=== PATIENT | male | born 1945 | race Caucasian/White ===

== ENCOUNTER 2019-01-08 08:27 | Emergency (ER) | payer OTHER, SELFPAY ==
[2019-01-08 08:37] VITALS: BP 124/75; PULSE 82; RESP 18; TEMP 36.8; O2SAT 100; BMI 30.7
--- NOTE | 2019-01-08 08:41 | PC.NURSE ---
per son pt had catheter in for 4 months initially, then had it changed via urologist states it was in dept procedure. had to dilate constricted area, then start with a small size parr gradually increasing the size until a 14f was placed. the 1st time it was changed after that was uncomplicated. 2nd time was on Saturday. pt having blood on tip of penis, and increased pain, this is different then 1st time. lidocaine placed topically to pt's penis and urethra for pain, then explained will manipulate the catheter to see if symptoms resolve.
--- NOTE | 2019-01-08 09:18 | ED_ITS ---
HPI - Male Genitourinary General Chief complaint: Urogenital-Male Stated complaint: Painful Catheter / Bleeding Time Seen by Provider: 01/08/19 08:35 Source: patient and family Mode of arrival: EMS Limitations: no limitations History of Present Illness HPI Narrative: Patient is a 73-year-old male who has an indwelling Kaur catheter secondary to his immobility and concern for decubitus ulcers. He has had a Kaur catheter for some time now. He had a replaced 2 days ago at an outside facility. He stated that it was a fairly painful insertion which he has never had in the past. States that over the past 24 hr he has had more pain and bleeding. The catheter still draining. No fevers. He is on Eliquis. Related Data Home Medications Medication Instructions Recorded Confirmed ASPIRIN (Aspirin EC) 81 mg PO QDAY #0 09/24/11 Calcium Carbonate/Vitamin D 1 cap PO QDAY #0 09/24/11 (#CALCIUM) HYDROCHLOROTHIAZIDE (#HCTZ) 25 mg PO QDAY #0 09/24/11 MAGNESIUM OXIDE (Magnesium Oxide) 100 mg PO QDAY #0 09/24/11 PRAZOSIN HCL (MINIPRES) 5 mg PO HS #0 09/24/11 Propranolol HCl 40 mg PO TID #0 09/24/11 VALPROIC ACID (STAVZOR~) 250 mg PO QDAY #0 09/24/11 [POTASSIUM] QDAY #0 09/24/11 [VITAMIN D] QDAY #0 09/24/11 [ZINC] QDAY #0 09/24/11 aripiprazole [Abilify] 20 mg PO QDAY #0 09/24/11 fluoxetine 20 mg PO QDAY #0 09/24/11 glipizide 10 mg PO BID #0 09/24/11 insulin glargine [Lantus U-100 15 unit SQ HS #0 09/24/11 Insulin] levothyroxine [Synthroid] 0.125 mg PO QDAY #0 09/24/11 lisinopril 40 mg PO QDAY #0 09/24/11 metformin 1,000 mg PO BID #0 09/24/11 omeprazole magnesium [Prilosec OTC] 20 mg PO QDAY #0 09/24/11 rosuvastatin [Crestor] 20 mg PO QDAY #0 09/24/11 Allergies Allergy/AdvReac Type Severity Reaction Status Date / Time CODEINE Allergy Mild DOES NOT Uncoded 01/08/19 08:41 RECALL VICODIN Allergy Mild ANXIETY Uncoded 01/08/19 08:41 From DILANTIN Allergy Unknown Uncoded 01/08/19 08:41 Review of Systems Constitutional Denies fever(s) Genitourinary Comments: Bleeding and pain at the tip of the penis from the Kaur catheter Integumentary/Breasts Denies rash Neurologic Denies behavioral changes Psychiatric Denies behavioral changes Hematologic/Lymphatic Comments: on Eliquis [facility] Medical History Diabetes (Acute) Hypothyroid (Acute) Social History caregiver/support person: Yes Social History caregiver/support person: Yes Exam Initial Vital Signs Initial Vital Signs: Vital Signs Temperature 98.3 F 01/08/19 08:37 Pulse Rate 82 01/08/19 08:37 Respiratory Rate 18 01/08/19 08:37 Blood Pressure 124/75 01/08/19 08:37 Pulse Oximetry 100 01/08/19 08:37 Const General: cooperative, well developed, well groomed and No acute distress Orientation: alert, awake and oriented x3 Resp Effort & Inspection: normal respiratory effort Cardio Rate: regular rate Other: normal external male genitalia. Circumcised. Kaur catheter in place. Does have some dry blood around the tip of the meatus. No active bleeding. Skin Lesions: no lesions Rashes: no rashes Neuro General: alert and awake Extrem General: normal to inspection and capillary refill normal Course Orders Ordered: Discontinued Medications Lidocaine HCl (Xylocaine Jelly 2%) 1 applic TOP NOW ONE Stop: 01/08/19 09:13 Vital Signs - 8 hr 01/08/19 08:37 Temperature 98.3 F Pulse Rate 82 Respiratory Rate 18 Blood Pressure 124/75 Pulse Oximetry 100 MDM - Male Genitourinary MDM Narrative Medical decision making narrative: The Kaur catheter is draining. I do suspect that the bleeding today secondary to the traumatic insertion a couple days ago. This is complicated by the fact that he is on Eliquis. The patient does not have the Kaur secured to his leg. I discussed with the family that it is most likely irritation on the inside of the urethra secondary to the traumatic insertion. I do recommend not switching the catheter today for fear of causing more problems. It does seem to be draining without any problems which makes me suspect that the catheter is in the correct position. We did discuss securing the catheter to his leg so that it decreases the movement. We did discuss return precautions. The patient and family expressed understanding and agreement plan. Discharge Plan Departure Patient Disposition: Home Clinical Impression: Kaur catheter problem Qualifiers: Encounter type: initial encounter Qualified Code(s): T83.9XXA - Unspecified complication of genitourinary prosthetic device, implant and graft, initial encounter Instructions: How to Care for Your Kaur Catheter -- Male Activity Restrictions/Additional Instructions: continue all of your medications as directed. I would recommend securing the Kaur to your leg for the next couple days. Return to the emergency department if the Kaur stopped draining. Contact your urologist for follow-up. Prescriptions: No Action ASPIRIN (Aspirin EC) 81 mg PO QDAY Qty: 0 RF: 0 aripiprazole [Abilify] 20 MG tablet 20 mg PO QDAY Qty: 0 RF: 0 fluoxetine 20 MG tablet 20 mg PO QDAY Qty: 0 RF: 0 glipizide 10 MG tablet 10 mg PO BID Qty: 0 RF: 0 HYDROCHLOROTHIAZIDE (#HCTZ) 25 mg PO QDAY Qty: 0 RF: 0 insulin glargine [Lantus U-100 Insulin] 100 UNIT/1 ML solution 15 unit SQ HS Qty: 0 RF: 0 levothyroxine [Synthroid] 125 MCG tablet 0.125 mg PO QDAY Qty: 0 RF: 0 metformin 1,000 MG tablet 1,000 mg PO BID Qty: 0 RF: 0 lisinopril 40 MG tablet 40 mg PO QDAY Qty: 0 RF: 0 PRAZOSIN HCL (MINIPRES) 5 mg PO HS Qty: 0 RF: 0 rosuvastatin [Crestor] 10 MG tablet 20 mg PO QDAY Qty: 0 RF: 0 Propranolol HCl 40 mg PO TID Qty: 0 RF: 0 VALPROIC ACID (STAVZOR~) 250 mg PO QDAY Qty: 0 RF: 0 omeprazole magnesium [Prilosec OTC] 20 MG tablet,delayed release (DR/EC) 20 mg PO QDAY Qty: 0 RF: 0 MAGNESIUM OXIDE (Magnesium Oxide) 100 mg PO QDAY Qty: 0 RF: 0 [VITAMIN D] QDAY Qty: 0 RF: 0 Calcium Carbonate/Vitamin D (#CALCIUM) 1 cap PO QDAY Qty: 0 RF: 0 [POTASSIUM] QDAY Qty: 0 RF: 0 [ZINC] QDAY Qty: 0 RF: 0 Referrals: Provider,Conversion [Primary Care Provider] -
[2019-01-08 11:03] VITALS: BP 138/57; PULSE 84; RESP 18; O2SAT 99
== END 2019-01-08 12:18 | disposition home or self-care (01) ==
LOC: ED 09:29
PROVIDERS: Emergency Provider Emergency Medicine
DX: T83.098A Other mechanical complication of other urinary catheter, initial encounter (principal)
CPT/HCPCS: 99282

== ENCOUNTER 2019-01-14 22:43 | Emergency (ER) | payer OTHER, SELFPAY ==
[2019-01-14 22:57] VITALS: BP 125/88; PULSE 82; RESP 21; TEMP 36.9; O2SAT 95
[2019-01-15 01:47] VITALS: BP 114/55; PULSE 76; RESP 18; O2SAT 99
--- NOTE | 2019-01-15 06:58 | ED.MALEGU ---
HPI - Male Genitourinary General Chief complaint: Urogenital-Male Stated complaint: Urinary Retention Time Seen by Provider: 01/14/19 22:45 Source: patient, family and EMS Mode of arrival: EMS Limitations: no limitations History of Present Illness HPI Narrative: 73-year-old male with history of stroke and chronic Kaur catheter presents by EMS for evaluation of suprapubic tenderness and difficulty urinating, his Kaur has not been empty. He has had no fever chills and denies any back pain. He tried flushing at home and was unsuccessful. Onset (ago): hour(s) Duration: constant Severity: mild Quality: aching Relieving factors: none Exacerbating factors: none Related Data Home Medications Medication Instructions Recorded Confirmed ASPIRIN (Aspirin EC) 81 mg PO QDAY #0 09/24/11 Calcium Carbonate/Vitamin D 1 cap PO QDAY #0 09/24/11 (#CALCIUM) HYDROCHLOROTHIAZIDE (#HCTZ) 25 mg PO QDAY #0 09/24/11 MAGNESIUM OXIDE (Magnesium Oxide) 100 mg PO QDAY #0 09/24/11 PRAZOSIN HCL (MINIPRES) 5 mg PO HS #0 09/24/11 Propranolol HCl 40 mg PO TID #0 09/24/11 VALPROIC ACID (STAVZOR~) 250 mg PO QDAY #0 09/24/11 [POTASSIUM] QDAY #0 09/24/11 [VITAMIN D] QDAY #0 09/24/11 [ZINC] QDAY #0 09/24/11 aripiprazole [Abilify] 20 mg PO QDAY #0 09/24/11 fluoxetine 20 mg PO QDAY #0 09/24/11 glipizide 10 mg PO BID #0 09/24/11 insulin glargine [Lantus U-100 15 unit SQ HS #0 09/24/11 Insulin] levothyroxine [Synthroid] 0.125 mg PO QDAY #0 09/24/11 lisinopril 40 mg PO QDAY #0 09/24/11 metformin 1,000 mg PO BID #0 09/24/11 omeprazole magnesium [Prilosec OTC] 20 mg PO QDAY #0 09/24/11 rosuvastatin [Crestor] 20 mg PO QDAY #0 09/24/11 Allergies Allergy/AdvReac Type Severity Reaction Status Date / Time CODEINE Allergy Mild DOES NOT Uncoded 01/14/19 23:06 RECALL VICODIN Allergy Mild ANXIETY Uncoded 01/14/19 23:06 From DILANTIN Allergy Unknown Uncoded 01/14/19 23:06 Review of Systems Constitutional Denies chills, Denies fever(s), Denies lethargy and Denies weakness Eyes Denies change in vision, Denies eye discharge, Denies irritation and Denies loss of vision ENT Ears, Nose, Mouth, and Throat: Denies change in voice, Denies neck pain and Denies sore throat Cardiovascular Denies chest pain, Denies irregular heart rhythm, Denies lightheadedness, Denies palpitations, Denies dyspnea, Denies dyspnea on exertion and Denies orthopnea Respiratory Denies cough, Denies dyspnea, Denies dyspnea on exertion and Denies wheezing Gastrointestinal Gastrointestinal: Reports abdominal pain, Denies change in bowel habits, Denies diarrhea, Denies nausea and Denies vomiting Genitourinary Denies hematuria, Denies flank pain, Denies urinary incontinence and Denies urinary urgency Musculoskeletal Denies neck pain Integumentary/Breasts Denies pruritus, Denies erythema, Denies rash and Denies wounds Neurologic Denies confusion, Denies loss of vision and Denies weakness Psychiatric Denies anxiety, Denies confusion, Denies depression, Denies homicidal ideation and Denies suicidal ideation Endocrine Denies palpitations Hematologic/Lymphatic Denies easy bruising Allergic/Immunologic Denies wheezing PFSH Medical History Diabetes (Acute) Hypothyroid (Acute) Social History caregiver/support person: Yes Smoking Status: Former smoker Social History caregiver/support person: Yes Smoking Status: Former smoker Exam Narrative Exam Narrative: GEN: AOx3 and in mild distress EYES: Pupils are equal, round, and reactive to light and accommodation. Extraoccular muscles are intact bilaterally. There is no subconjunctival hemorrhage or exudate. CHEST: Lungs are clear to auscultation bilaterally and free of wheezes, rales, or rhonchi. Heart rate is regular rhythm, there are no murmurs, clicks, rubs, or gallops. There is no chest wall tenderness. ABD: Abdomen is soft and tender in the suprapubic region. No urine in the Kaur bag There is no guarding or rebound. Bowel sounds are normal in all 4 quadrants. There is no mass or organomegaly. EXT: Full painless ROM of all extremities with no loss of sensation or strength. SKIN: Warm, pink, and dry. No erythema or rash Initial Vital Signs Initial Vital Signs: Vital Signs Temperature 98.4 F 01/14/19 22:57 Pulse Rate 82 01/14/19 22:57 Respiratory Rate 21 01/14/19 22:57 Blood Pressure 125/88 01/14/19 22:57 Pulse Oximetry 95 01/14/19 22:57 Course Reevaluation(s) Reevaluation #1: Kaur catheter flushed, 3-400 cc of urine is the result, pain completely resolves Vital Signs - 8 hr 01/15/19 01:47 Pulse Rate 76 Respiratory Rate 18 Blood Pressure [Right Arm] 114/55 L Pulse Oximetry 99 Discharge Plan Departure Patient Disposition: Home Clinical Impression: Kaur catheter problem Qualifiers: Encounter type: initial encounter Qualified Code(s): T83.9XXA - Unspecified complication of genitourinary prosthetic device, implant and graft, initial encounter Discharge Date/Time: 01/15/19 01:54 Interventions: ED Discharge Assessment Last Done: 01/15/19 01:48 Instructions: DI for Urinary Retention in Men Activity Restrictions/Additional Instructions: *You have been diagnosed with [ Kaur catheter problem ] *What to do: * continue to take medications as directed *Follow up with your primary care provider in 2-3 days, call for an appointment. Let them know you were seen in the Emergency Department and that we ask that you be seen in follow up *Return to ER if you should have any new, worsening or concerning symptoms Prescriptions: No Action ASPIRIN (Aspirin EC) 81 mg PO QDAY Qty: 0 RF: 0 aripiprazole [Abilify] 20 MG tablet 20 mg PO QDAY Qty: 0 RF: 0 fluoxetine 20 MG tablet 20 mg PO QDAY Qty: 0 RF: 0 glipizide 10 MG tablet 10 mg PO BID Qty: 0 RF: 0 HYDROCHLOROTHIAZIDE (#HCTZ) 25 mg PO QDAY Qty: 0 RF: 0 insulin glargine [Lantus U-100 Insulin] 100 UNIT/1 ML solution 15 unit SQ HS Qty: 0 RF: 0 levothyroxine [Synthroid] 125 MCG tablet 0.125 mg PO QDAY Qty: 0 RF: 0 metformin 1,000 MG tablet 1,000 mg PO BID Qty: 0 RF: 0 lisinopril 40 MG tablet 40 mg PO QDAY Qty: 0 RF: 0 PRAZOSIN HCL (MINIPRES) 5 mg PO HS Qty: 0 RF: 0 rosuvastatin [Crestor] 10 MG tablet 20 mg PO QDAY Qty: 0 RF: 0 Propranolol HCl 40 mg PO TID Qty: 0 RF: 0 VALPROIC ACID (STAVZOR~) 250 mg PO QDAY Qty: 0 RF: 0 omeprazole magnesium [Prilosec OTC] 20 MG tablet,delayed release (DR/EC) 20 mg PO QDAY Qty: 0 RF: 0 MAGNESIUM OXIDE (Magnesium Oxide) 100 mg PO QDAY Qty: 0 RF: 0 [VITAMIN D] QDAY Qty: 0 RF: 0 Calcium Carbonate/Vitamin D (#CALCIUM) 1 cap PO QDAY Qty: 0 RF: 0 [POTASSIUM] QDAY Qty: 0 RF: 0 [ZINC] QDAY Qty: 0 RF: 0
== END 2019-01-15 01:54 | disposition home or self-care (01) ==
PROVIDERS: Emergency Provider Emergency Medicine
DX: T83.9XXA Unspecified complication of genitourinary prosthetic device, implant and graft, initial encounter (principal)
CPT/HCPCS: 51798; 99282; 99283

== ENCOUNTER 2019-05-29 15:08 | Emergency (ER) | payer OTHER, MEDICARE, SELFPAY ==
[2019-05-29 15:15] VITALS: BP 149/90; PULSE 57; RESP 19; TEMP 36.4; O2SAT 98
--- NOTE | 2019-05-29 15:21 | DI.RAD.S_ITS ---
PROCEDURE: XR CHEST 1V INDICATIONS: sob TECHNIQUE: One view of the chest was acquired. COMPARISON: [facility], , CHEST 2VW, 08/08/2012, 11:56. FINDINGS: Surgical changes and devices: Median sternotomy changes are present. Lungs and pleura: Mild scar versus atelectasis along the left lateral chest wall is present. Mediastinum: Mediastinal contours appear normal. Heart size is enlarged. Bones and chest wall: No suspicious bony lesions. Overlying soft tissues appear unremarkable. IMPRESSION: 1. Cardiomegaly without overt heart failure. 2. Atelectasis versus scarring along the lateral margin of the left mid to inferior lung. Dictated by: Aleksandar Jimenez M.D. on 05/29/2019 at 14:36 Approved by: Aleksandar Jimenez M.D. on 05/29/2019 at 14:37
[2019-05-29 15:59] LABS: Add Manual Diff / Slide Review NO; Basophils Absolute Auto 0 /uL (0-100); Basophils Percent Auto 0.8 % (0-2); Eosinophils Absolute Auto 500 /uL (0-450); Eosinophils Percent Auto 7.1 % (2-4); Hematocrit 37.1 % (41-53); Hemoglobin 12.7 g/dL (13.5-17.5); Lymphocytes Absolute Auto 1200 /uL (1100-4500); Lymphocytes Percent Auto 18.7 % (25-40); Mean Corpuscular HGB Conc 34.1 % (30-36); Mean Corpuscular Hemoglobin 29.9 PG (26-34); Mean Corpuscular Volume 87.6 fL (80-100); Monocytes Absolute Auto 400 /uL (0-900); Monocytes Percent Auto 6.5 % (3-14); Neutrophils Absolute Auto 4300 /uL (1500-7000); Neutrophils Percent Auto 66.9 % (50-75); Platelet Count 132 X10^3/uL (150-400); Red Blood Cell Count 4.24 X10^6/uL (4.5-5.9); Red Cell Distribution Width 15.8 % (11.6-14.8); White Blood Cell Count 6.4 X10^3/uL (4.5-11.0)
[2019-05-29 16:05] VITALS: BP 124/50; PULSE 59; RESP 20; O2SAT 97
[2019-05-29 16:09] LABS: Alanine Aminotransferase 12 IU/L (21-72); Albumin 3.8 g/dL (3.5-5.0); Albumin Globulin Ratio 1.2 (1.0-2.8); Alkaline Phosphatase 83 U/L (38-126); Aspartate Aminotransferase 35 IU/L (17-59); BUN Creatinine Ratio 18.5 (6-22); Bilirubin Total 0.9 mg/dL (0.2-1.3); Blood Urea Nitrogen 24 mg/dL (9-20); Calcium 9.2 mg/dL (8.4-10.2); Carbon Dioxide 20 mmol/L (22-32); Chloride 109 mmol/L (98-107); Globulin 3.2 g/dL (1.7-4.1); Glucose 126 mg/dL (80-110); Lactate (Lactic Acid) 1.3 mmol/L (0.7-2.1); Potassium 4.7 mmol/L (3.4-5.1); Sodium 141 mmol/L (137-145)
[2019-05-29] MEDS: SODIUM CHLORIDE 0.9% 1,000 ML 200 ML IV (16:09)
[2019-05-29 16:10] LABS: Appearance Urine UA CLOUDY; Bilirubin Urine UA NEGATIVE (NEGATIVE); Color Urine UA YELLOW; Glucose Urine UA NEGATIVE (Negative); Ketones Urine UA NEGATIVE (NEGATIVE); Leukocyte Esterase Urine UA 3+ (NEGATIVE); Nitrite Urine UA NEGATIVE (Negative); Occult Blood Urine UA 1+ (Negative); Protein Urine UA NEGATIVE (Negative); Specific Gravity Urine UA 1.015 (1.000-1.035); Urobilinogen Urine UA 0.2 E.U./dL (0.2); pH Urine UA 6.5 (4.5-8.0)
[2019-05-29 16:10] LABS: HEMOLYSIS 98 (0-50)
--- NOTE | 2019-05-29 16:15 | ED.MALEGU ---
HPI - Male Genitourinary General Chief complaint: Urogenital-Male Stated complaint: Urinary Tract Infection Time Seen by Provider: 05/29/19 15:10 Source: patient Mode of arrival: ambulatory Limitations: no limitations History of Present Illness HPI Narrative: Patient is a 74-year-old male with history of stroke left-sided weakness is chronic Kaur catheter presenting with painful urination ongoing starting today. He denies any fever or weakness. He has no abdominal pain no nausea or vomiting. He has not had any fevers. He says this feels like previous UTI. He denies any chest pain heart palpitations or shortness of breath. MD Complaint: dysuria Related Data Home Medications Medication Instructions Recorded Confirmed Calcium Carbonate/Vitamin D 1 cap PO DAILY #0 09/24/11 05/29/19 (#CALCIUM) Lantus U-100 Insulin 15 unit SQ BEDTIME #0 09/24/11 05/29/19 MAGNESIUM OXIDE (Magnesium Oxide) 100 mg PO DAILY #0 09/24/11 05/29/19 PRAZOSIN HCL (MINIPRES) 5 mg PO BEDTIME #0 09/24/11 05/29/19 Prilosec OTC 20 mg PO DAILY #0 09/24/11 05/29/19 Propranolol HCl 40 mg PO TID #0 09/24/11 05/29/19 VALPROIC ACID (STAVZOR~) 250 mg PO DAILY #0 09/24/11 05/29/19 [POTASSIUM] 1 tab PO DAILY #0 09/24/11 05/29/19 [VITAMIN D] 1 tab PO DAILY #0 09/24/11 05/29/19 [ZINC] 1 cap PO DAILY #0 09/24/11 05/29/19 aspirin 81 mg PO DAILY #0 09/24/11 05/29/19 fluoxetine 20 mg PO DAILY #0 09/24/11 05/29/19 glipizide 10 mg PO BID #0 09/24/11 05/29/19 levothyroxine [Synthroid] 0.125 mg PO QDAY #0 09/24/11 05/29/19 lisinopril 40 mg PO DAILY #0 09/24/11 05/29/19 metformin 1,000 mg PO BID #0 09/24/11 05/29/19 rosuvastatin [Crestor] 20 mg PO DAILY #0 09/24/11 05/29/19 Previous Rx's Medication Instructions Recorded sulfamethoxazole-trimethoprim 1 tab PO BID 7 Days #14 tab 05/29/19 [Bactrim DS] Review of Systems Review of Systems ROS Unobtainable: All systems reviewed & are unremarkable except as noted in HPI and below Constitutional Denies chills, Denies fever(s), Denies lethargy and Denies weakness ENT Ears, Nose, Mouth, and Throat: Denies change in voice, Denies neck pain and Denies sore throat Cardiovascular Denies chest pain, Denies irregular heart rhythm, Denies lightheadedness, Denies palpitations, Denies dyspnea, Denies dyspnea on exertion and Denies orthopnea Respiratory Denies cough, Denies dyspnea, Denies dyspnea on exertion and Denies wheezing Gastrointestinal Gastrointestinal: Denies abdominal pain, Denies change in bowel habits, Denies diarrhea, Denies nausea and Denies vomiting Genitourinary Reports as per HPI Musculoskeletal Denies neck pain Integumentary/Breasts Denies pruritus, Denies erythema, Denies rash and Denies wounds Neurologic Reports as per HPI and Denies weakness Endocrine Denies palpitations Allergic/Immunologic Denies wheezing [facility] Medical History CVA (cerebral vascular accident) (Acute) Diabetes (Acute) Hypothyroid (Acute) Social History (Updated 01/08/19 @ 09:16 by Rangel Swanson DO) caregiver/support person: Yes Smoking Status: Former smoker Social History caregiver/support person: Yes Smoking Status: Former smoker Exam Initial Vital Signs Initial Vital Signs: Vital Signs Temperature 97.6 F 05/29/19 15:15 Pulse Rate 57 L 05/29/19 15:15 Respiratory Rate 19 05/29/19 15:15 Blood Pressure 149/90 H 05/29/19 15:15 Pulse Oximetry 98 05/29/19 15:15 GENERAL: Elderly and in no acute distress. HEENT: Head atraumatic,EOMI, pupils reactive, left-sided facial droop chronic CARDIOVASCULAR: Regular rate and rhythm without murmurs, rubs or gallops. RESPIRATORY: Breath sounds equal bilaterally, no wheezes rales or rhonchi. ABDOMEN: Soft, nontender. Normoactive bowel sounds all 4 quadrants. No guarding or rebound. Scar from sternum to pelvis : Kaur in place EXTREMITIES: Normal range of motion, no clubbing or edema. Neurovascularly intact NEUROLOGICAL: Alert and oriented x4. SKIN: Warm, dry, no laceration, no petechiae, no rashes or lesions. Course Orders Ordered: ED Orders 05/29/19 15:21 XR chest 1V Stat 05/29/19 15:40 Complete Blood Count AUTO DIFF Stat Comprehensive Metabolic Panel Stat Lactate (Lactic Acid) Stat Procalcitonin Stat 05/29/19 15:57 Blood Culture Stat 05/29/19 16:01 Urinalysis and Microscopic Stat Urine Culture Stat Discontinued Medications Sodium Chloride (Normal Saline 0.9%) 1,000 mls @ 200 mls/hr IV CONT MONALISA Last Admin: 05/29/19 16:09 Dose: 200 mls/hr Vital Signs - 8 hr 05/29/19 15:15 05/29/19 16:05 05/29/19 18:14 Temperature 97.6 F Pulse Rate 57 L 59 L 58 L Respiratory Rate 19 20 24 Blood Pressure 149/90 H Blood Pressure [Left Arm] 124/50 L 138/59 L Pulse Oximetry 98 97 99 05/29/19 18:44 Temperature Pulse Rate 60 Respiratory Rate Blood Pressure Blood Pressure [Left Arm] 115/65 Pulse Oximetry MDM - Male Genitourinary Lab Data Attestation: I reviewed the patient's lab results. Result diagrams: 05/29/19 15:40 05/29/19 15:40 Lab Results 05/29/19 05/29/19 05/29/19 Range/Units 15:40 15:40 15:40 WBC 6.4 (4.5-11.0) X10^3/uL RBC 4.24 L (4.5-5.9) X10^6/uL Hgb 12.7 L (13.5-17.5) g/dL Hct 37.1 L (41-53) % MCV 87.6 (80-100) fL MCH 29.9 (26-34) PG MCHC 34.1 (30-36) % RDW 15.8 H (11.6-14.8) % Plt Count 132 L (150-400) X10^3/uL Neut % (Auto) 66.9 (50-75) % Lymph % (Auto) 18.7 L (25-40) % [place] % (Auto) 6.5 (3-14) % Eos % (Auto) 7.1 H (2-4) % Baso % (Auto) 0.8 (0-2) % Neut # (Auto) 4300 (2109-2706) /uL Lymph # (Auto) 1200 (0466-5742) /uL [place] # (Auto) 400 (0-900) /uL Eos # (Auto) 500 H (0-450) /uL Baso # (Auto) 0 (0-100) /uL Sodium 141 (137-145) mmol/L Potassium 4.7 (3.4-5.1) mmol/L Chloride 109 H (98-107) mmol/L Carbon Dioxide 20 L (22-32) mmol/L BUN 24 H (9-20) mg/dL Creatinine 1.30 H (0.66-1.25) mg/dL Estimated GFR 54.0 L (>60) mL/min BUN/Creatinine Ratio 18.5 (6-22) Glucose 126 H (80-110) mg/dL Lactate (0.7-2.1) mmol/L Calcium 9.2 (8.4-10.2) mg/dL Total Bilirubin 0.9 (0.2-1.3) mg/dL AST 35 (17-59) IU/L ALT 12 L (21-72) IU/L Alkaline Phosphatase 83 (38-126) U/L Total Protein 7.0 (6.3-8.2) g/dL Albumin 3.8 (3.5-5.0) g/dL Globulin 3.2 (1.7-4.1) g/dL Albumin/Globulin Ratio 1.2 (1.0-2.8) Procalcitonin < 0.05 (<0.5) ng/mL Urine Color Urine Appearance Urine pH (4.5-8.0) Ur Specific [place] (1.000-1.035) Urine Protein (Negative) Urine Glucose (UA) (Negative) g/dL Urine Ketones (NEGATIVE) Urine Occult Blood (Negative) Urine Nitrate (Negative) Urine Bilirubin (NEGATIVE) Urine Urobilinogen (0.2) E.U./dL Ur Leukocyte Esterase (NEGATIVE) Urine RBC (0-5/HPF) Urine WBC (0-5/HPF) Ur Squamous Epith Cells (0-5/HPF) Urine Bacteria (None) Ur Culture Indicated? 05/29/19 05/29/19 Range/Units 15:40 16:01 WBC (4.5-11.0) X10^3/uL RBC (4.5-5.9) X10^6/uL Hgb (13.5-17.5) g/dL Hct (41-53) % MCV (80-100) fL MCH (26-34) PG MCHC (30-36) % RDW (11.6-14.8) % Plt Count (150-400) X10^3/uL Neut % (Auto) (50-75) % Lymph % (Auto) (25-40) % [place] % (Auto) (3-14) % Eos % (Auto) (2-4) % Baso % (Auto) (0-2) % Neut # (Auto) (0553-2578) /uL Lymph # (Auto) (7702-4179) /uL [place] # (Auto) (0-900) /uL Eos # (Auto) (0-450) /uL Baso # (Auto) (0-100) /uL Sodium (137-145) mmol/L Potassium (3.4-5.1) mmol/L Chloride (98-107) mmol/L Carbon Dioxide (22-32) mmol/L BUN (9-20) mg/dL Creatinine (0.66-1.25) mg/dL Estimated GFR (>60) mL/min BUN/Creatinine Ratio (6-22) Glucose (80-110) mg/dL Lactate 1.3 (0.7-2.1) mmol/L Calcium (8.4-10.2) mg/dL Total Bilirubin (0.2-1.3) mg/dL AST (17-59) IU/L ALT (21-72) IU/L Alkaline Phosphatase (38-126) U/L Total Protein (6.3-8.2) g/dL Albumin (3.5-5.0) g/dL Globulin (1.7-4.1) g/dL Albumin/Globulin Ratio (1.0-2.8) Procalcitonin (<0.5) ng/mL Urine Color Yellow Urine Appearance Cloudy Urine pH 6.5 (4.5-8.0) Ur Specific [place] 1.015 (1.000-1.035) Urine Protein Negative (Negative) Urine Glucose (UA) Negative (Negative) g/dL Urine Ketones Negative (NEGATIVE) Urine Occult Blood 1+ H (Negative) Urine Nitrate Negative (Negative) Urine Bilirubin Negative (NEGATIVE) Urine Urobilinogen 0.2 (0.2) E.U./dL Ur Leukocyte Esterase 3+ H (NEGATIVE) Urine RBC 5-10/hpf H (0-5/HPF) Urine WBC 10-30/hpf H (0-5/HPF) Ur Squamous Epith Cells 0-1 /hpf (0-5/HPF) Urine Bacteria Many (>30) H (None) Ur Culture Indicated? Specimen cultured Imaging Data Chest x-ray: Radiologist's impression: PROCEDURE: XR CHEST 1V INDICATIONS: sob TECHNIQUE: One view of the chest was acquired. COMPARISON: [facility], , CHEST 2VW, 08/08/2012, 11:56. FINDINGS: Surgical changes and devices: Median sternotomy changes are present. Lungs and pleura: Mild scar versus atelectasis along the left lateral chest wall is present. Mediastinum: Mediastinal contours appear normal. Heart size is enlarged. Bones and chest wall: No suspicious bony lesions. Overlying soft tissues appear unremarkable. IMPRESSION: 1. Cardiomegaly without overt heart failure. 2. Atelectasis versus scarring along the lateral margin of the left mid to inferior lung. Dictated by: Aleksandar Jimenez M.D. on 05/29/2019 at 14:36 MDM Narrative Medical decision making narrative: Patient is not septic. Family at bedside they state that he is at his baseline mental status. They agree with outpatient treatment at this time. They were told that a that he will need antibiotics however no be will be available to prescribe them over the weekend so they recommended he come to the ED for evaluation and antibiotics. Patient does not walk and is bed-bound due to his stroke and left-sided hemiparesis. He will require BLS transfer home. His son was given prescription for Bactrim to fill and he will started this evening. Discharge Plan Departure Patient Disposition: Home Clinical Impression: Urinary tract infection Qualifiers: Urinary tract infection type: catheter-associated UTI Indwelling urinary catheter type: indwelling urethral catheter Encounter type: initial encounter Qualified Code(s): T83.511A - Infection and inflammatory reaction due to indwelling urethral catheter, initial encounter Discharge Date/Time: 05/29/19 18:51 Interventions: ED Discharge Assessment Last Done: 05/29/19 18:50 Instructions: DI for Urinary Retention in Men Activity Restrictions/Additional Instructions: *You have been diagnosed with bladder infection related to catheterization *What to do: At this time blood work is reassuring. May treat as an outpatient. *Continue to take medications as directed 1 tablet twice a day for 7 days *Follow up with your primary care provider in 2-3 days *Return to ER if you should have increased confusion increased pain increase abdominal pain or any new, worsening or concerning symptoms Prescriptions: New sulfamethoxazole-trimethoprim [Bactrim DS] 800-160 mg tablet 1 tab PO BID 7 Days Qty: 14 RF: 0 No Action aspirin 81 mg Tablet,Delayed Release (Dr/Ec) 81 mg PO DAILY Qty: 0 RF: 0 fluoxetine 20 MG tablet 20 mg PO DAILY Qty: 0 RF: 0 glipizide 10 MG tablet 10 mg PO BID Qty: 0 RF: 0 Lantus U-100 Insulin 100 UNIT/1 ML solution 15 unit SQ BEDTIME Qty: 0 RF: 0 levothyroxine [Synthroid] 125 MCG tablet 0.125 mg PO QDAY Qty: 0 RF: 0 metformin 1,000 MG tablet 1,000 mg PO BID Qty: 0 RF: 0 lisinopril 40 MG tablet 40 mg PO DAILY Qty: 0 RF: 0 PRAZOSIN HCL (MINIPRES) 5 mg PO BEDTIME Qty: 0 RF: 0 rosuvastatin [Crestor] 10 MG tablet 20 mg PO DAILY Qty: 0 RF: 0 Propranolol HCl 40 mg PO TID Qty: 0 RF: 0 VALPROIC ACID (STAVZOR~) 250 mg PO DAILY Qty: 0 RF: 0 Prilosec OTC 20 MG tablet,delayed release (DR/EC) 20 mg PO DAILY Qty: 0 RF: 0 MAGNESIUM OXIDE (Magnesium Oxide) 100 mg PO DAILY Qty: 0 RF: 0 [VITAMIN D] 1 tab PO DAILY Qty: 0 RF: 0 Calcium Carbonate/Vitamin D (#CALCIUM) 1 cap PO DAILY Qty: 0 RF: 0 [POTASSIUM] 1 tab PO DAILY Qty: 0 RF: 0 [ZINC] 1 cap PO DAILY Qty: 0 RF: 0
[2019-05-29 16:19] LABS: Bacteria Urine Many (>30); Culture Indicated Urine Specimen Cultured; RBC Urine 5-10/HPF (0-5/HPF); Squamous Epithelial Cell Urine 0-1 /HPF (0-5/HPF); WBC Urine 10-30/HPF (0-5/HPF)
[2019-05-29 16:24] LABS: Procalcitonin < 0.05 ng/mL (<0.5)
[2019-05-29 18:14] VITALS: BP 138/59; PULSE 58; RESP 24; O2SAT 99
[2019-05-29 18:44] VITALS: BP 115/65; PULSE 60
--- NOTE | 2019-06-19 12:58 | PC.NURSE ---
Normal Saline 650 cc infused without difficulty at 1845.
== END 2019-05-29 18:51 | disposition home or self-care (01) ==
PROVIDERS: Emergency Provider Emergency Medicine
DX: T83.511A Infection and inflammatory reaction due to indwelling urethral catheter, initial encounter (principal)
CPT/HCPCS: 36415; 36591; 71045; 80053; 81001; 83605; 84145; 85025; 87040; 87077; 87086; 87186; 96360; 96361; 99283; 99284

== ENCOUNTER 2019-06-27 11:53 | Emergency (ER) | payer MEDICARE, OTHER, SELFPAY ==
[2019-06-27 12:03] VITALS: BMI 31.6
[2019-06-27 12:05] VITALS: BP 126/80; PULSE 57; RESP 12; TEMP 36.5; O2SAT 98
--- NOTE | 2019-06-27 12:42 | PC.NURSE ---
Pt with parr catheter. states had no urine in bag this morning and his bed was soaked.
[2019-06-27 12:43] LABS: Bilirubin Urine UA NEGATIVE (NEGATIVE); Color Urine UA YELLOW; Glucose Urine UA NEGATIVE (Negative); Ketones Urine UA NEGATIVE (NEGATIVE); Leukocyte Esterase Urine UA 2+ (NEGATIVE); Nitrite Urine UA NEGATIVE (Negative); Occult Blood Urine UA 2+ (Negative); Protein Urine UA 1+ (Negative); Specific Gravity Urine UA 1.015 (1.000-1.035); pH Urine UA 7.5 (4.5-8.0)
[2019-06-27 12:47] LABS: Appearance Urine UA CLOUDY
--- NOTE | 2019-06-27 12:50 | ED_ITS ---
HPI - Male Genitourinary <Lilo Lamarmer, [employer] - Last Filed: 06/27/19 15:15> General Chief complaint: Urogenital-Male Stated complaint: Kaur leak Time Seen by Provider: 06/27/19 11:55 Source: patient and EMS Mode of arrival: EMS Limitations: no limitations History of Present Illness HPI Narrative: The patient is a 74-year-old male former smoker with history of stroke and left-sided weakness who presents with a chief complaint of a leaking Kaur catheter. He states he noticed this morning when he woke up and he was wet. He states he is leaking urine around his Kaur catheter. He states this catheter was put in last week. He denies any fevers nausea vomiting diarrhea or abdominal pain. He denies any weakness. He denies any chest pain or shortness of breath. He states he does have some dysuria He was treated for urinary tract infection on 05/29 and was placed on Bactrim Related Data Home Medications Medication Instructions Recorded Confirmed Calcium Carbonate/Vitamin D 1 cap PO DAILY #0 09/24/11 05/29/19 (#CALCIUM) Lantus U-100 Insulin 15 unit SQ BEDTIME #0 09/24/11 05/29/19 MAGNESIUM OXIDE (Magnesium Oxide) 100 mg PO DAILY #0 09/24/11 05/29/19 PRAZOSIN HCL (MINIPRES) 5 mg PO BEDTIME #0 09/24/11 05/29/19 Prilosec OTC 20 mg PO DAILY #0 09/24/11 05/29/19 Propranolol HCl 40 mg PO TID #0 09/24/11 05/29/19 VALPROIC ACID (STAVZOR~) 250 mg PO DAILY #0 09/24/11 05/29/19 [POTASSIUM] 1 tab PO DAILY #0 09/24/11 05/29/19 [VITAMIN D] 1 tab PO DAILY #0 09/24/11 05/29/19 [ZINC] 1 cap PO DAILY #0 09/24/11 05/29/19 aspirin 81 mg PO DAILY #0 09/24/11 05/29/19 fluoxetine 20 mg PO DAILY #0 09/24/11 05/29/19 glipizide 10 mg PO BID #0 09/24/11 05/29/19 levothyroxine [Synthroid] 0.125 mg PO QDAY #0 09/24/11 05/29/19 lisinopril 40 mg PO DAILY #0 09/24/11 05/29/19 metformin 1,000 mg PO BID #0 09/24/11 05/29/19 rosuvastatin [Crestor] 20 mg PO DAILY #0 09/24/11 05/29/19 Previous Rx's Medication Instructions Recorded sulfamethoxazole-trimethoprim 1 tab PO BID #14 tab 06/27/19 [Bactrim DS] Allergies Allergy/AdvReac Type Severity Reaction Status Date / Time codeine Allergy Verified 06/27/19 12:15 diazepam Allergy Verified 06/27/19 12:15 hydrocodone Allergy Verified 06/27/19 12:15 simvastatin Allergy Verified 06/27/19 12:15 Review of Systems <ABRAHAM Triplett - Last Filed: 06/27/19 15:15> Review of Systems GENERAL: Denies chills, fatigue, malaise, fever, sweats. HEENT: Denies sinus pain, ear pain, sore throat, difficulty swallowing, dizziness. RESPIRATORY: Denies dyspnea, cough, wheezing, hemoptysis, sputum. CARDIOVASCULAR: Denies chest pain, palpitations, orthopnea, edema, GASTROINTESTINAL: Denies nausea, vomiting, abdominal pain, diarrhea, constipation, melena. : See HPI MUSCULOSKELETAL: denies weakness, joint pain, or bony pain SKIN: Denies rash, skin lesions, or other NEUROLOGIC: See HPI PSYCHIATRIC: No concerning psychosocial issues. 12 point review of systems is negative except for those stated above PFSH <ABRAHAM Triplett - Last Filed: 06/27/19 15:15> Medical History CVA (cerebral vascular accident) (Acute) Diabetes (Acute) Hypothyroid (Acute) Social History caregiver/support person: Yes Smoking Status: Former smoker Social History caregiver/support person: Yes Smoking Status: Former smoker Exam <ABRAHAM Triplett - Last Filed: 06/27/19 15:15> Narrative Exam Narrative: GENERAL: Chronically ill male lying in no acute distress HEAD: Atraumatic. Normocephalic. No temporal or scalp tenderness. EYES: Pupils equal round and reactive. Extraocular motions intact. No scleral icterus. No injection or drainage. ENT: Nose without bleeding, purulent drainage or septal hematoma. Throat without erythema, tonsillar hypertrophy or exudate. Uvula midline. Airway patent. NECK: Trachea midline. No JVD or lymphadenopathy. Supple, nontender, no meningeal signs. CARDIOVASCULAR: Regular rate and rhythm without murmurs, gallops, or rubs. RESPIRATORY: Clear to auscultation. Breath sounds equal bilaterally. No wheezes, rales, or rhonchi. GASTROINTESTINAL: Abdomen soft, non-tender, nondistended. No hepato- splenomegaly, or palpable masses. No guarding. Active bowel sounds all 4 quadrants EXTREMITIES: No clubbing, cyanosis, or edema. No joint tenderness, effusion, or edema noted. BACK: Nontender without deformity or crepitance. No flank tenderness. NEURO: AOx3. SKIN: Postoperative scars noted on abdomen Initial Vital Signs Initial Vital Signs: Vital Signs Temperature 97.7 F 06/27/19 12:05 Pulse Rate 57 L 06/27/19 12:05 Respiratory Rate 12 06/27/19 12:05 Blood Pressure 126/80 06/27/19 12:05 Pulse Oximetry 98 06/27/19 12:05 <Esperanza Roland DO - Last Filed: 06/28/19 07:25> Initial Vital Signs Initial Vital Signs: Vital Signs Temperature 97.7 F 06/27/19 12:05 Pulse Rate 57 L 06/27/19 12:05 Respiratory Rate 12 06/27/19 12:05 Blood Pressure 126/80 06/27/19 12:05 Pulse Oximetry 98 06/27/19 12:05 Course <ABRAHAM Triplett - Last Filed: 06/27/19 15:15> Orders Ordered: ED Orders 06/27/19 12:36 Urinalysis and Microscopic Stat Urine Culture Stat Vital Signs - 8 hr 06/27/19 12:05 06/27/19 15:12 Temperature 97.7 F Pulse Rate 57 L 61 Respiratory Rate 12 18 Blood Pressure 126/73 Blood Pressure [Right Arm] 126/80 Pulse Oximetry 98 96 <Esperanza Roland DO - Last Filed: 06/28/19 07:25> Orders Ordered: ED Orders 06/27/19 12:36 Urinalysis and Microscopic Stat Urine Culture Stat Vital Signs - 8 hr 06/27/19 12:05 06/27/19 15:12 Temperature 97.7 F Pulse Rate 57 L 61 Respiratory Rate 12 18 Blood Pressure 126/73 Blood Pressure [Right Arm] 126/80 Pulse Oximetry 98 96 MDM - Male Genitourinary <ABRAHAM Triplett - Last Filed: 06/27/19 15:15> Lab Data Lab Results 06/27/19 Range/Units 12:36 Urine Color Yellow Urine Appearance Cloudy Urine pH 7.5 (4.5-8.0) Ur Specific [place] 1.015 (1.000-1.035) Urine Protein 1+ H (Negative) Urine Glucose (UA) Negative (Negative) g/dL Urine Ketones Negative (NEGATIVE) Urine Occult Blood 2+ H (Negative) Urine Nitrate Negative (Negative) Urine Bilirubin Negative (NEGATIVE) Urine Urobilinogen 1.0 (0.2) E.U./dL Ur Leukocyte Esterase 2+ H (NEGATIVE) Urine RBC 10-30/hpf H (0-5/HPF) Urine WBC 30-100/hpf H (0-5/HPF) Urine Bacteria Many (>30) H (None) Ur Culture Indicated? Specimen cultured MDM Narrative Medical decision making narrative: The patient is a 74-year-old male who presents with urine leaking around his Kaur catheter. His Kaur catheter was replaced in clear yellow urine was drained in the bag. A urinalysis was sent, and was concerning for infection versus colonization. However given that he has dysuria, I will treat him for an infection. His urine culture result from 05/29 it shows both E coli with Klebsiella. Thus I will start him on Bactrim as that shows susceptibility to both bacteria sets. Discussed at length monitoring for inability keep down fluids, flank pain, signs of worsening infection. Discussed follow-up with PCP. Discussed coming back to the ER for any acute concerns such as chest pain, shortness of breath etc. No questions or concerns upon discharge. Patient was transferred by S home due to paralysis and being bed- bound <Esperanza Roland DO - Last Filed: 06/28/19 07:25> Lab Data Lab Results 06/27/19 Range/Units 12:36 Urine Color Yellow Urine Appearance Cloudy Urine pH 7.5 (4.5-8.0) Ur Specific [place] 1.015 (1.000-1.035) Urine Protein 1+ H (Negative) Urine Glucose (UA) Negative (Negative) g/dL Urine Ketones Negative (NEGATIVE) Urine Occult Blood 2+ H (Negative) Urine Nitrate Negative (Negative) Urine Bilirubin Negative (NEGATIVE) Urine Urobilinogen 1.0 (0.2) E.U./dL Ur Leukocyte Esterase 2+ H (NEGATIVE) Urine RBC 10-30/hpf H (0-5/HPF) Urine WBC 30-100/hpf H (0-5/HPF) Urine Bacteria Many (>30) H (None) Ur Culture Indicated? Specimen cultured Discharge Plan Departure Patient Disposition: Home Clinical Impression: Urinary tract infection Qualifiers: Urinary tract infection type: catheter-associated UTI Indwelling urinary catheter type: indwelling urethral catheter Encounter type: initial encounter Qualified Code(s): T83.511A - Infection and inflammatory reaction due to indwelling urethral catheter, initial encounter Kaur catheter problem Qualifiers: Encounter type: initial encounter Qualified Code(s): T83.9XXA - Unspecified complication of genitourinary prosthetic device, implant and graft, initial encounter Discharge Date/Time: 06/27/19 15:13 Interventions: ED Discharge Assessment Last Done: 06/27/19 15:12 Instructions: How to Care for Your Kaur Catheter -- Male, DI for Urinary Tract Infection (UTI) Activity Restrictions/Additional Instructions: Today we replaced your Kaur catheter. Your urinalysis is concerning for infection, so I have placed you on an antibiotic. A urine culture is pending at this time and will result in 48-72 hours. Please monitor for fever, inability keep down fluids flank pain any signs of worsening infection and come back to the emergency department if you have any acute concerns. Please follow up with her primary care provider. Prescriptions: New sulfamethoxazole-trimethoprim [Bactrim DS] 800-160 mg tablet 1 tab PO BID Qty: 14 RF: 0 No Action aspirin 81 mg Tablet,Delayed Release (Dr/Ec) 81 mg PO DAILY Qty: 0 RF: 0 fluoxetine 20 MG tablet 20 mg PO DAILY Qty: 0 RF: 0 glipizide 10 MG tablet 10 mg PO BID Qty: 0 RF: 0 Lantus U-100 Insulin 100 UNIT/1 ML solution 15 unit SQ BEDTIME Qty: 0 RF: 0 levothyroxine [Synthroid] 125 MCG tablet 0.125 mg PO QDAY Qty: 0 RF: 0 metformin 1,000 MG tablet 1,000 mg PO BID Qty: 0 RF: 0 lisinopril 40 MG tablet 40 mg PO DAILY Qty: 0 RF: 0 PRAZOSIN HCL (MINIPRES) 5 mg PO BEDTIME Qty: 0 RF: 0 rosuvastatin [Crestor] 10 MG tablet 20 mg PO DAILY Qty: 0 RF: 0 Propranolol HCl 40 mg PO TID Qty: 0 RF: 0 VALPROIC ACID (STAVZOR~) 250 mg PO DAILY Qty: 0 RF: 0 Prilosec OTC 20 MG tablet,delayed release (DR/EC) 20 mg PO DAILY Qty: 0 RF: 0 MAGNESIUM OXIDE (Magnesium Oxide) 100 mg PO DAILY Qty: 0 RF: 0 [VITAMIN D] 1 tab PO DAILY Qty: 0 RF: 0 Calcium Carbonate/Vitamin D (#CALCIUM) 1 cap PO DAILY Qty: 0 RF: 0 [POTASSIUM] 1 tab PO DAILY Qty: 0 RF: 0 [ZINC] 1 cap PO DAILY Qty: 0 RF: 0 <Esperanza Roland, - Last Filed: 06/28/19 07:25> Cosign ED Attending Scarlettature Attestation: I was immediately available in the department for consultation. Documentation has been reviewed. I agree with assessment and plan.
[2019-06-27 12:55] LABS: Bacteria Urine Many (>30); Culture Indicated Urine Specimen Cultured; RBC Urine 10-30/HPF (0-5/HPF); WBC Urine 30-100/HPF (0-5/HPF)
[2019-06-27 15:12] VITALS: BP 126/73; PULSE 61; RESP 18; O2SAT 96
== END 2019-06-27 15:13 | disposition home or self-care (01) ==
PROVIDERS: Emergency Provider Nurse Practitioner Family
DX: T83.511A Infection and inflammatory reaction due to indwelling urethral catheter, initial encounter (principal); T83.9XXA Unspecified complication of genitourinary prosthetic device, implant and graft, initial encounter
CPT/HCPCS: 51705; 51798; 81001; 87077; 87086; 87186; 99283

== ENCOUNTER 2019-09-12 09:01 | Emergency (ER) | payer OTHER, MEDICARE, SELFPAY ==
[2019-09-12 09:30] VITALS: BP 150/79; PULSE 72; RESP 18; TEMP 36.6; O2SAT 96; BMI 30.4
[2019-09-12] MEDS: SODIUM CHLORIDE 0.9% 1,000 ML 1000 ML IV ×2 (09:50→10:43)
--- NOTE | 2019-09-12 09:57 | ED_ITS ---
HPI - Male Genitourinary General Chief complaint: Urogenital-Male Stated complaint: Clogged Catheter Time Seen by Provider: 09/12/19 09:03 Source: patient and EMS Mode of arrival: EMS Limitations: physical limitation History of Present Illness HPI Narrative: Patient is a 74-year-old male with history of stroke left-sided weakness with chronic indwelling Kaur catheters in frequent UTIs. He presents today with Kaur catheter problem. He says it is not working he is having increasing abdominal pain. It started not draining and working last evening. He has had no fever chills or sweats. Last UTI was in June. He is having abdominal discomfort but no nausea or vomiting. Related Data Home Medications Medication Instructions Recorded Confirmed Calcium Carbonate/Vitamin D 1 cap PO DAILY #0 09/24/11 05/29/19 (#CALCIUM) Lantus U-100 Insulin 15 unit SQ BEDTIME #0 09/24/11 05/29/19 MAGNESIUM OXIDE (Magnesium Oxide) 100 mg PO DAILY #0 09/24/11 05/29/19 PRAZOSIN HCL (MINIPRES) 5 mg PO BEDTIME #0 09/24/11 05/29/19 Prilosec OTC 20 mg PO DAILY #0 09/24/11 05/29/19 Propranolol HCl 40 mg PO TID #0 09/24/11 05/29/19 VALPROIC ACID (STAVZOR~) 250 mg PO DAILY #0 09/24/11 05/29/19 [POTASSIUM] 1 tab PO DAILY #0 09/24/11 05/29/19 [VITAMIN D] 1 tab PO DAILY #0 09/24/11 05/29/19 [ZINC] 1 cap PO DAILY #0 09/24/11 05/29/19 aspirin 81 mg PO DAILY #0 09/24/11 05/29/19 fluoxetine 20 mg PO DAILY #0 09/24/11 05/29/19 glipizide 10 mg PO BID #0 09/24/11 05/29/19 levothyroxine [Synthroid] 0.125 mg PO QDAY #0 09/24/11 05/29/19 lisinopril 40 mg PO DAILY #0 09/24/11 05/29/19 metformin 1,000 mg PO BID #0 09/24/11 05/29/19 rosuvastatin [Crestor] 20 mg PO DAILY #0 09/24/11 05/29/19 Previous Rx's Medication Instructions Recorded sulfamethoxazole-trimethoprim 1 tab PO BID #14 tab 06/27/19 [Bactrim DS] cephalexin [Keflex] 500 mg PO TID #30 cap 09/12/19 Allergies Allergy/AdvReac Type Severity Reaction Status Date / Time codeine Allergy Verified 06/27/19 12:15 diazepam Allergy Verified 06/27/19 12:15 hydrocodone Allergy Verified 06/27/19 12:15 simvastatin Allergy Verified 06/27/19 12:15 Review of Systems Review of Systems Narrative: GENERAL: Denies chills, fatigue, malaise, fever, sweats, travel HEENT: Denies sinus pain, ear pain, sore throat, difficulty swallowing, neck pain RESPIRATORY: Denies dyspnea, cough, wheezing, hemoptysis, sputum. CARDIOVASCULAR: Denies chest pain, palpitations, orthopnea, edema GASTROINTESTINAL: Denies nausea, vomiting, abdominal pain, diarrhea, constipation, melena. : See HPI MUSCULOSKELETAL: Denies weakness, joint pain, or bony pain SKIN: No rash, no erythema, no pruritus NEUROLOGIC: Denies weakness, dizziness, headache, numbness, change in speech, confusion PSYCHIATRIC: No concerning psychosocial issues. 12 point review of systems is negative except for those stated above and HPI Patient History Medical History CVA (cerebral vascular accident) (Acute) Diabetes (Acute) Hypothyroid (Acute) Social History caregiver/support person: Yes Smoking Status: Former smoker alcohol intake frequency: 0-2 drinks per day Substance Use Type: does not use Exam Initial Vital Signs Initial Vital Signs: Vital Signs Temperature 97.8 F 09/12/19 09:30 Pulse Rate 72 09/12/19 09:30 Respiratory Rate 18 09/12/19 09:30 Blood Pressure 150/79 H 09/12/19 09:30 Pulse Oximetry 96 09/12/19 09:30 GENERAL: Alert elderly male chronically ill and in [no acute] distress. HEENT: Head atraumatic,EOMI, pupils reactive, face symmetric, [moist] mucous membranes CARDIOVASCULAR: Regular rate and rhythm without murmurs, rubs or gallops. RESPIRATORY: Breath sounds equal bilaterally, no wheezes rales or rhonchi. ABDOMEN: Soft, nontender. Normoactive bowel sounds all 4 quadrants. No guarding or rebound. : Kaur catheter in place minimal urine in Kaur catheter bag. Urine does appear quite cloudy in the tube EXTREMITIES: Normal range of motion, no clubbing or edema. Neurovascularly intact NEUROLOGICAL: Alert oriented x4 left-sided weakness at baseline SKIN: Warm, dry, no laceration, no petechiae, no rashes or lesions. Course Orders Ordered: ED Orders 09/12/19 09:22 Urine Culture Stat Urine Microscopic Stat 09/12/19 09:40 Basic Metabolic Panel Stat Complete Blood Count AUTO DIFF Stat Lactate (Lactic Acid) Stat Procalcitonin Stat 09/12/19 10:30 Blood Culture Stat Discontinued Medications Sodium Chloride (Normal Saline 0.9%) 1,000 mls @ 1,000 mls/hr IV BOLUS ONE Stop: 09/12/19 10:48 Last Infusion: 09/12/19 10:41 Dose: 0 mls/hr Documented by: Admin: 09/12/19 09:50 Dose: 1,000 mls/hr Documented by: ANNIE Ceftriaxone Sodium/Dextrose (Rocephin) 1 gm in 50 mls @ 100 mls/hr IV NOW ONE Stop: 09/12/19 10:57 Last Infusion: 09/12/19 11:52 Dose: 0 mls/hr Documented by: Admin: 09/12/19 11:04 Dose: 100 mls/hr Documented by: ANNIE Sodium Chloride (Normal Saline 0.9%) 1,000 mls @ 1,000 mls/hr IV BOLUS ONE Stop: 09/12/19 11:33 Last Infusion: 09/12/19 11:52 Dose: 0 mls/hr Documented by: Admin: 09/12/19 10:43 Dose: 1,000 mls/hr Documented by: ANNIE Vital Signs Vital signs: Vital Signs - 8 hr 09/12/19 09:30 09/12/19 10:05 09/12/19 10:32 Temperature 97.8 F Pulse Rate 72 71 64 Respiratory Rate 18 12 12 Blood Pressure 150/79 H Blood Pressure [Left Arm] 103/64 108/58 L Pulse Oximetry 96 94 98 09/12/19 11:14 09/12/19 12:15 Temperature Pulse Rate 64 72 Respiratory Rate 14 Blood Pressure Blood Pressure [Left Arm] 109/55 L 112/59 L Pulse Oximetry 100 97 MDM - Male Genitourinary Lab Data Attestation: I reviewed the patient's lab results. Result diagrams: 09/12/19 09:40 09/12/19 09:40 Labs: Lab Results 09/12/19 09/12/19 09/12/19 Range/Units 09:22 09:40 09:40 WBC 10.9 (4.5-11.0) X10^3/uL RBC 4.69 (4.5-5.9) X10^6/uL Hgb 14.7 (13.5-17.5) g/dL Hct 42.2 (41-53) % MCV 89.9 (80-100) fL MCH 31.3 (26-34) PG MCHC 34.8 (30-36) % RDW 15.5 H (11.6-14.8) % Plt Count 157 (150-400) X10^3/uL Neut % (Auto) 89.7 H (50-75) % Lymph % (Auto) 4.5 L (25-40) % [place] % (Auto) 5.0 (3-14) % Eos % (Auto) 0.3 L (2-4) % Baso % (Auto) 0.5 (0-2) % Neut # (Auto) 9800 H (4851-6439) /uL Lymph # (Auto) 500 L (1711-5164) /uL [place] # (Auto) 500 (0-900) /uL Eos # (Auto) 0 (0-450) /uL Baso # (Auto) 100 (0-100) /uL Sodium (137-145) mmol/L Potassium (3.4-5.1) mmol/L Chloride (98-107) mmol/L Carbon Dioxide (22-32) mmol/L BUN (9-20) mg/dL Creatinine (0.66-1.25) mg/dL Estimated GFR (>60) mL/min BUN/Creatinine Ratio (6-22) Glucose (80-110) mg/dL Lactate (0.7-2.1) mmol/L Calcium (8.4-10.2) mg/dL Procalcitonin < 0.05 (<0.5) ng/mL Urine RBC 10-30/hpf H (0-5/HPF) Urine WBC 30-100/hpf H (0-5/HPF) Urine Bacteria Many (>30) H (None) Ur Culture Indicated? Specimen cultured 09/12/19 09/12/19 Range/Units 09:40 09:40 WBC (4.5-11.0) X10^3/uL RBC (4.5-5.9) X10^6/uL Hgb (13.5-17.5) g/dL Hct (41-53) % MCV (80-100) fL MCH (26-34) PG MCHC (30-36) % RDW (11.6-14.8) % Plt Count (150-400) X10^3/uL Neut % (Auto) (50-75) % Lymph % (Auto) (25-40) % Bradford % (Auto) (3-14) % Eos % (Auto) (2-4) % Baso % (Auto) (0-2) % Neut # (Auto) (7479-9648) /uL Lymph # (Auto) (2590-7022) /uL Bradford # (Auto) (0-900) /uL Eos # (Auto) (0-450) /uL Baso # (Auto) (0-100) /uL Sodium 140 (137-145) mmol/L Potassium 4.0 (3.4-5.1) mmol/L Chloride 106 (98-107) mmol/L Carbon Dioxide 23 (22-32) mmol/L BUN 27 H (9-20) mg/dL Creatinine 1.60 H (0.66-1.25) mg/dL Estimated GFR 42.5 L (>60) mL/min BUN/Creatinine Ratio 16.9 (6-22) Glucose 194 H (80-110) mg/dL Lactate 1.4 (0.7-2.1) mmol/L Calcium 9.3 (8.4-10.2) mg/dL Procalcitonin (<0.5) ng/mL Urine RBC (0-5/HPF) Urine WBC (0-5/HPF) Urine Bacteria (None) Ur Culture Indicated? Urine Dip Bedside Urine Glucose Negative Bedside Urine Bilirubin - Negative Bedside Urine Ketone - Negative Urine Specific [place] 1.010 Bedside Urine Occult Blood ++ Bedside Urine pH 8.0 Bedside Urine Protein + 30 Bedside Urine Urobilinogen +/- 1mg Bedside Urine Nitrite - Negative Bedside Urine Leukocytes +++ 500 Esterase MDM Narrative Medical decision making narrative: Nursing wit to replace Kaur catheter gross pus came out when they replaced the catheter. At which point blood work was ordered. At this time patient does not appear septic no tachycardia blood pressure was briefly low but improved quite quickly with minimal amount IV fluids. Normal lactic acid. Gross UTI. Antibiotics are given based on previous cultures. I have called and spoken with the son Rangel personally the request patient be sent back to the house by BLS. Discharge Plan Departure Patient Disposition: Home Clinical Impression: Urinary tract infection Qualifiers: Urinary tract infection type: catheter-associated UTI Indwelling urinary catheter type: indwelling urethral catheter Encounter type: initial encounter Qualified Code(s): T83.511A - Infection and inflammatory reaction due to indwelling urethral catheter, initial encounter Discharge Date/Time: 09/12/19 12:39 Instructions: DI for Urinary Tract Infection (UTI) Activity Restrictions/Additional Instructions: *You have been diagnosed with catheter related bladder infection *What to do: Monitor for confusion, decreased intake *Continue to take medications as directed Keflex 500 mg 3 times a day for 10 days *Follow up with your primary care provider in 2-3 days *Return to ER if you should have increased confusion, not eating or drinking, Kaur catheter not working or any new, worsening or concerning symptoms Prescriptions: New cephalexin [Keflex] 500 mg capsule 500 mg PO TID Qty: 30 RF: 0 No Action aspirin 81 mg Tablet,Delayed Release (Dr/Ec) 81 mg PO DAILY Qty: 0 RF: 0 fluoxetine 20 MG tablet 20 mg PO DAILY Qty: 0 RF: 0 glipizide 10 MG tablet 10 mg PO BID Qty: 0 RF: 0 Lantus U-100 Insulin 100 UNIT/1 ML solution 15 unit SQ BEDTIME Qty: 0 RF: 0 levothyroxine [Synthroid] 125 MCG tablet 0.125 mg PO QDAY Qty: 0 RF: 0 metformin 1,000 MG tablet 1,000 mg PO BID Qty: 0 RF: 0 lisinopril 40 MG tablet 40 mg PO DAILY Qty: 0 RF: 0 PRAZOSIN HCL (MINIPRES) 5 mg PO BEDTIME Qty: 0 RF: 0 rosuvastatin [Crestor] 10 MG tablet 20 mg PO DAILY Qty: 0 RF: 0 Propranolol HCl 40 mg PO TID Qty: 0 RF: 0 VALPROIC ACID (STAVZOR~) 250 mg PO DAILY Qty: 0 RF: 0 Prilosec OTC 20 MG tablet,delayed release (DR/EC) 20 mg PO DAILY Qty: 0 RF: 0 MAGNESIUM OXIDE (Magnesium Oxide) 100 mg PO DAILY Qty: 0 RF: 0 [VITAMIN D] 1 tab PO DAILY Qty: 0 RF: 0 Calcium Carbonate/Vitamin D (#CALCIUM) 1 cap PO DAILY Qty: 0 RF: 0 [POTASSIUM] 1 tab PO DAILY Qty: 0 RF: 0 [ZINC] 1 cap PO DAILY Qty: 0 RF: 0 sulfamethoxazole-trimethoprim [Bactrim DS] 800-160 mg tablet 1 tab PO BID Qty: 14 RF: 0
[2019-09-12 10:05] VITALS: BP 103/64; PULSE 71; RESP 12; O2SAT 94
[2019-09-12 10:08] LABS: Add Manual Diff / Slide Review NO; Basophils Absolute Auto 100 /uL (0-100); Basophils Percent Auto 0.5 % (0-2); Eosinophils Absolute Auto 0 /uL (0-450); Eosinophils Percent Auto 0.3 % (2-4); Hematocrit 42.2 % (41-53); Hemoglobin 14.7 g/dL (13.5-17.5); Lymphocytes Absolute Auto 500 /uL (1100-4500); Lymphocytes Percent Auto 4.5 % (25-40); Mean Corpuscular HGB Conc 34.8 % (30-36); Mean Corpuscular Hemoglobin 31.3 PG (26-34); Mean Corpuscular Volume 89.9 fL (80-100); Monocytes Absolute Auto 500 /uL (0-900); Neutrophils Absolute Auto 9800 /uL (1500-7000); Neutrophils Percent Auto 89.7 % (50-75); Platelet Count 157 X10^3/uL (150-400); Red Blood Cell Count 4.69 X10^6/uL (4.5-5.9); Red Cell Distribution Width 15.5 % (11.6-14.8); White Blood Cell Count 10.9 X10^3/uL (4.5-11.0)
[2019-09-12 10:17] LABS: Bacteria Urine Many (>30); Culture Indicated Urine Specimen Cultured; RBC Urine 10-30/HPF (0-5/HPF); WBC Urine 30-100/HPF (0-5/HPF)
[2019-09-12 10:19] LABS: BUN Creatinine Ratio 16.9 (6-22); Blood Urea Nitrogen 27 mg/dL (9-20); Calcium 9.3 mg/dL (8.4-10.2); Carbon Dioxide 23 mmol/L (22-32); Chloride 106 mmol/L (98-107); Estimated Glomerular Filt Rate 42.5 mL/min (>60); Glucose 194 mg/dL (80-110); HEMOLYSIS < 15 (0-50); Lactate (Lactic Acid) 1.4 mmol/L (0.7-2.1); Sodium 140 mmol/L (137-145)
[2019-09-12 10:32] VITALS: BP 108/58; PULSE 64; RESP 12; O2SAT 98
[2019-09-12 10:40] LABS: Procalcitonin < 0.05 ng/mL (<0.5)
[2019-09-12] MEDS: CEFTRIAXONE 1 GM/50 ML FROZ.PIGGY IV (11:04)
[2019-09-12 11:14] VITALS: BP 109/55; PULSE 64; O2SAT 100
[2019-09-12 12:15] VITALS: BP 112/59; PULSE 72; RESP 14; O2SAT 97
== END 2019-09-12 12:39 | disposition home or self-care (01) ==
PROVIDERS: Emergency Provider Emergency Medicine
DX: T83.511A Infection and inflammatory reaction due to indwelling urethral catheter, initial encounter (principal); E11.9 Type 2 diabetes mellitus without complications
CPT/HCPCS: 36415; 51701; 51705; 51798; 80048; 81003; 81015; 83605; 84145; 85025; 87040; 87077; 87086; 87186; 96361; 96365; 99284; 99285